=== PATIENT | female | born 1985 | race Caucasian/White ===

== ENCOUNTER 2024-01-05 03:13 | Observation (INO) ==
[2024-01-05 05:13] LABS: ABS Basophils 0.1 10^3/uL (0.0-0.1); ABS Eosinophils 0.1 10^3/uL (0.0-0.5); ABS Lymphocytes 1.6 10^3/uL (1.0-4.8); ABS Monocytes 0.4 10^3/uL (0.0-0.9); ABS Neutrophils 4.4 10^3/uL (1.5-7.6); Eosinophil % 1.2 %; Hemoglobin 12.6 g/dL (11.5-14.3); Lymphocyte % 24.4 %; Mean Corpuscular Hemoglobin 31.1 pg (27-33); Mean Corpuscular Hgb Conc 34.2 g/dL (31-36); Mean Corpuscular Volume 90.9 fL (80-97); Mean Platelet Volume 7.8 fL (7.5-11.2); Nucleated Red Blood Cells % 0.1 %/100WBC (0.0-0.8); Platelet Count 308 10^3/uL (150-450); Red Blood Count 4.07 10^6/uL (3.63-4.92); Red Cell Distribution Width 12.6 % (12-17); White Blood Count 6.6 10^3/uL (3.8-11.8)
[2024-01-05] MEDS: Piperacillin/Tazobac 3.375 BAG 3.375 GM/100 ML BAG IV ONE (05:15)
[2024-01-05 05:36] LABS: Activated Partial Thrombo Time 35.5 seconds (26.0-38.0); INR 0.97 (0.83-1.13)
[2024-01-05 05:52] LABS: Albumin 4.9 g/dL (3.2-5.2); Albumin/Globulin Ratio 2.1 (1-3); C Reactive Protein 10.79 mg/L (<8.01); Calcium 9.7 mg/dL (8.6-10.3); Creatinine, Serum 0.76 mg/dL (0.51-0.95); Globulin 2.3 g/dL (2-4); Potassium 3.8 mmol/L (3.5-5.0); Total Protein 7.2 g/dL (6.4-8.9); eGFR CKD-EPI 102.8 (>60)
[2024-01-05] MEDS: NS 0.9% 1000 ml BAG 1,000 ML IV SCH (06:23)
[2024-01-05 06:33] LABS: Erythrocyte Sed Rate 26 mm/Hr (0-19)
[2024-01-05] MEDS ORDERED: Lorazepam PYXIS KEY PRN (08:14)
[2024-01-05] MEDS: ZOSYN 3.375 GM Q8H per EXTENDED INFUSION IV SCH (08:36)
[2024-01-05] MEDS: LORazepam 2 mg VIAL 1 ml IV PUSH ONE (08:37)
[2024-01-05] MEDS ORDERED: Zosyn per Pharmacy NOTE FOLLOW UP SCH (09:00)
[2024-01-05] MEDS ORDERED: Propofol 10 MG/ML 20 ML BTL ONE ×4 (10:26→18:14)
[2024-01-05] MEDS ORDERED: fentaNYL 100 mcg/2 ml 50 MCG/ML VIAL ONE ×3 (10:26→19:29)
[2024-01-05] MEDS ORDERED: Ondansetron 4 mg VIAL 2 MG/ML 2 ml VIAL ONE ×2 (10:26→20:03)
[2024-01-05] MEDS ORDERED: Dexamethasone IV 4 MG/ML VIAL 1 ml VIAL ONE (10:26)
[2024-01-05] MEDS ORDERED: Lidocaine 2% PF 5 ML VIAL ONE ×2 (10:26→15:29)
[2024-01-05] MEDS ORDERED: Midazolam 2 mg/2 ml VIAL 1 mg/ml 2 ml VIAL (2 mg) ONE ×2 (10:27→15:29)
[2024-01-05] MEDS ORDERED: Ondansetron ODT 4 mg TAB 4 MG TAB PO PRN (10:36)
[2024-01-05] MEDS ORDERED: Morphine 2 MG/ML SYRINGE IV PRN (10:36)
[2024-01-05] MEDS ORDERED: Lactulose 30 ml UDC PO PRN (10:36)
[2024-01-05] MEDS ORDERED: Ondansetron 4 mg VIAL 2 MG/ML 2 ml VIAL IV PRN (10:36)
[2024-01-05] MEDS ORDERED: Magnesium Hydroxide LIQ 30 ML UDC PO PRN (10:36)
[2024-01-05] MEDS: Tetan/Diph/Pertus SYR(Tdap) 0.5 ML SYR(BOOSTRIX) use SYR contains LATEX IM ONE (13:09)
[2024-01-05] MEDS: Lactated Ringers 1000 ml BAG 1,000 ML IV SCH (13:21)
[2024-01-05] MEDS ORDERED: Propofol 0 MG/0 ML BTL ONE (14:04)
[2024-01-05] MEDS ORDERED: fentaNYL 250 mcg/5 ml 50 MCG/ML 5 ml VIAL (250 MCG) ONE (15:29)
[2024-01-05] MEDS ORDERED: Bupivacaine 0.25% SDV 30 ML ONE (16:00)
[2024-01-05] MEDS ORDERED: cefTRIAXone 2 gm/50 mL D5W 2 GM/50 ML BAG IV ONE (17:12)
[2024-01-05] MEDS: cefTRIAXone 2 gm/50 mL D5W 2 GM/50 ML BAG IV SCH (17:14)
[2024-01-05] MEDS ORDERED: Naloxone 0.4 mg VIAL 0.4 mg/ml 1 ml VIAL IV PRN (17:33)
[2024-01-05] MEDS ORDERED: Acetaminophen IV 1 GM/100ML 1,000 MG/100 ML BAG IV ONE (18:06)
[2024-01-05] MEDS: fentaNYL 100 mcg/2 ml 50 MCG/ML VIAL IV PRN (18:58)
[2024-01-05] MEDS: Ondansetron 4 mg VIAL 2 MG/ML 2 ml VIAL IV PRN (20:06)
[2024-01-05] MEDS: Magnesium Hydroxide LIQ 30 ML UDC PO SCH (21:32)
[2024-01-06 06:29] LABS: Hematocrit 37.1 % (35-45); Hemoglobin 12.7 g/dL (11.5-14.3); Mean Corpuscular Hemoglobin 31.3 pg (27-33); Mean Corpuscular Hgb Conc 34.4 g/dL (31-36); Mean Platelet Volume 8.1 fL (7.5-11.2); Platelet Count 313 10^3/uL (150-450); Red Blood Count 4.07 10^6/uL (3.63-4.92); Red Cell Distribution Width 12.6 % (12-17); White Blood Count 7.8 10^3/uL (3.8-11.8)
[2024-01-06 06:55] LABS: C Reactive Protein 8.14 mg/L (<8.01); Creatinine, Serum 0.62 mg/dL (0.51-0.95); Potassium 4.3 mmol/L (3.5-5.0); eGFR CKD-EPI 116.8 (>60)
[2024-01-06] MEDS: Vitamin THERAPEUTIC TAB PO SCH (10:51)
[2024-01-06 17:41] VITALS: BP 129/78
== END 2024-01-06 19:10 | disposition home or self-care (01) ==
LOC: EDHOLD 03:13 → ED 03:13 → SSU 16:31 → AA 16:54 → SSU 20:09
PROVIDERS: ADMIT Orthopaedic Surgery Hand Surgery; ATTEND Orthopaedic Surgery Hand Surgery